=== PATIENT | male | born 1965 | race Caucasian/White ===

== ENCOUNTER → 2020-02-05 | Outpatient (CLI) | payer OTHER ==
--- NOTE | 2020-02-05 14:03 | Diagnostic Imaging Report ---
PET/CT INDICATION: Right axillary carcinoma TECHNIQUE: PET/CT imaging was obtained from the base of the skull through the pelvis after the administration of 15.8 mCi of F-18 fluorodeoxyglucose into the left AC. Limited CT imaging was utilized for localization and attenuation correction purposes. The low energy CT utilized for attenuation correction is not considered to be of high enough spatial resolution to allow in and of itself a separate anatomical analysis. The lower extremities were also included on this exam. Patient height 5' 11" weight 201 Blood glucose level 80 There are no prior exams available for comparison. The report from the ultrasound exam of the right axilla performed at [facility] in [place], [place] on 01/07/2020 did note a 4.9 x 2.9 cm mass in the right lateral chest wall/lower axilla. This mass was subsequently biopsied on 01/10/2020 and a diagnosis of carcinoma was established. On the CT images of this exam that mass is again visualized. The mass is intensely hypermetabolic with a maximum SUV of 9.5. In addition there is an enlarged lymph node just cephalad and medial to this mass measuring 2.0 x 4.1 cm. That node is also hypermetabolic. With the maximum SUV of 7.5. In addition there are number of much smaller nodes in the right axilla and in the right supraclavicular region. These nodes are also hypermetabolic with SUV values ranging from 6.3-7.5. All of these findings should be considered neoplastic until proven otherwise. There is no other hypermetabolic activity to suggest the presence of malignancy. There is physiologic activity in the brain, the heart and the kidneys the bowel and the bladder. There is also generalized uptake and prominence of both parotid glands. This of uncertain etiology although unlikely to be related to malignancy given the symmetrical appearance of the parotid gland. Clinical follow-up is recommended however. There is increased uptake in the musculature posterior to each shoulder joint. This is symmetrical and felt to be exercise induced and not secondary to malignancy. The CT images failed to show any sign of an acute abnormality. IMPRESSION: 1. The recently biopsied mass in the right axilla/chest wall is intensely hypermetabolic consistent with malignancy. There are also a number of lymph nodes in the right axilla and right supraclavicular region which are hypermetabolic as well and these too should be considered neoplastic until proven otherwise. 2. There is no other hypermetabolic activity to suggest the presence of malignancy. 3. The symmetrical slightly increased uptake of the parotid glands is of uncertain etiology. Clinical follow-up is recommended. Dictated by: Dictated on workstation # [id number]
== END ==
LOC: RAD 07:52
PROVIDERS: ATTEND Internal Medicine Medical Oncology
DX: C77.3 Secondary and unspecified malignant neoplasm of axilla and upper limb lymph nodes (principal)